=== PATIENT | female | born 1970 | race Two or more races ===

== ENCOUNTER 2017-10-20 11:48 | Emergency (ER) | payer OTHER ==
[~2017-10-20] VITALS: Ht 167.6 cm; Wt 107.0 kg
[2017-10-20] MEDS ORDERED: CIPRO500 MG/5 M (12:30)
== END 2017-10-20 20:41 | disposition home or self-care (01) ==
LOC: ER 11:48
DX: K59.09 Other constipation (principal); R10.33 Periumbilical pain

== ENCOUNTER 2022-07-02 05:30 | Day surgery (SDC) | payer OTHER ==
[~2022-07-02 05:30] MED LIST: CIPRO500 MG/5 M
[2022-07-02] MEDS ORDERED: NEXIUM 24HR20 MG PO (09:12)
== END 2022-07-02 10:50 | disposition home or self-care (01) ==
LOC: AMB-ENDOS 05:30
PROVIDERS: ATTEND Surgery
DX: K29.60 Other gastritis without bleeding (principal); R10.13 Epigastric pain; K44.9 Diaphragmatic hernia without obstruction or gangrene; E66.09 Other obesity due to excess calories

== ENCOUNTER 2024-05-26 10:25 | Outpatient (CLI) | payer OTHER ==
[~2024-05-26 10:25] MED LIST changes: +NEXIUM 24HR20 MG PO
== END 2024-05-26 10:34 | disposition home or self-care (01) ==
LOC: SONOGRAMA 10:25
PROVIDERS: ATTEND Internal Medicine Endocrinology, Diabetes & Metabolism
DX: E04.1 Nontoxic single thyroid nodule (principal)

== ENCOUNTER 2024-06-09 14:12 | Outpatient (CLI) | payer OTHER ==
[2024-06-09 14:28] LABS: ABG PH 7.411 (7.35-7.45); ABG PO2 89.7 mmHg (80-100); ABG pCO2 39.3 mmHg (35-45); BASE EXCESS -0.1 mmol/l; BICARBONATE 24.4 mmol/l (23-25); Tco2 25.6 mmol/l; allen test SATISFACTORY; o2 21 %; puncture site RADIAL RIGHT
== END 2024-06-09 14:13 | disposition home or self-care (01) ==
LOC: LAB 14:12
DX: G47.33 Obstructive sleep apnea (adult) (pediatric) (principal)